=== PATIENT | male | born 1975 | race American Indian/Alaskan Native ===

== ENCOUNTER 2021-05-18 20:17 | Emergency (ER) | payer OTHER ==
[2021-05-18 21:22] VITALS: BP 154/88
[2021-05-18] MEDS ORDERED: ACETAMINOPHEN 500 MG TAB PO ONE (21:44)
[2021-05-18] MEDS ORDERED: IBUPROFEN 600 MG TAB PO ONE (21:44)
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
== END 2021-05-18 22:09 | disposition home or self-care (01) ==
LOC: ED 20:17
DX: S46.912A Strain of unspecified muscle, fascia and tendon at shoulder and upper arm level, left arm, initial encounter (principal); S00.83XA Contusion of other part of head, initial encounter; E11.9 Type 2 diabetes mellitus without complications; Z79.899 Other long term (current) drug therapy; V49.49XA Driver injured in collision with other motor vehicles in traffic accident, initial encounter; Y92.410 Unspecified street and highway as the place of occurrence of the external cause; Y93.89 Activity, other specified; Y99.8 Other external cause status
CPT/HCPCS: 99282